=== PATIENT | male | born 1970 | race Two or more races ===

== ENCOUNTER 2025-04-01 08:00 | Day surgery (SDC) | payer MEDICAID, SELFPAY ==
[2025-03-31 10:11] VITALS: BMI 36.8
[2025-03-31 12:35] LABS: Basophils # (Auto) 0.1 Thou/mm3 (0.0-0.2); Basophils % (Auto) 1 % (0-2.5); Eosinophils # (Auto) 0.1 Thou/mm3 (0.0-0.5); Eosinophils % (Auto) 2 % (0-10); Hematocrit 53.8 % (41.0-53.0); Hemoglobin 18.4 g/dL (13.5-16.0); Immature Granulocytes Auto 0.05 Thou/mm3 (0.00-0.00); Lymphocytes # (Auto) 2.0 Thou/mm3 (1.0-4.8); Lymphocytes % (Auto) 24 % (10-50); Mean Corpuscular HGB Conc 34.2 g/dl (31.0-37.0); Mean Corpuscular Hemoglobin 29.3 pg (25.0-35.0); Mean Corpuscular Volume 86 fL (80-100); Monocytes # (Auto) 1.1 Thou/mm3 (0.0-0.8); Monocytes % (Auto) 14 % (0-12); Neutrophils # (Auto) 4.9 Thou/mm3 (1.8-7.7); Neutrophils % (Auto) 59 % (37-80); Nucleated Red Blood Cell # 0.00 Thou/mm3 (0.00-0.00); Nucleated Red Blood Cell % 0 /100 WBC (0); Platelet Count 331 Thou/mm3 (140-440); RDW Standard Deviation 39.8 fL (35.1-43.9); Red Blood Count 6.29 Miln/mm3 (4.50-5.90); White Blood Count 8.3 Thou/mm3 (3.8-10.6)
[2025-03-31 12:47] LABS: Alanine Aminotransferase 46 U/L (10-49); Albumin, Serum 4.9 gm/dL (3.5-5.0); Albumin/Globulin Ratio 1.5 (1.2-2.2); Alkaline Phosphatase 86 U/L (46-116); Anion Gap 12 (7-16); Aspartate Amino Transferase 38 U/L (0-34); BUN/Creatinine Ratio 12 Ratio (12-20); Bilirubin,Total 0.6 mg/dL (0.3-1.2); Blood Urea Nitrogen 13 mg/dL (9-23); Calcium 9.9 mg/dL (8.3-10.6); Calcium (Corrected) 9.9 mg/dL (8.5-10.1); Carbon Dioxide 28.2 mMol/L (20.0-31.0); Chloride 104 mMol/L (98-107); Creatinine (Component) 1.1 mg/dL (0.6-1.3); Estimated Creatinine Clearance 86.5 mL/min (>60); Globulin 3.2 gm/dL (2.3-3.5); Glucose 112 mg/dL (74-106); Osmolality,Calculated 287 (275-295); Potassium 3.7 mMol/L (3.4-5.1); Sodium 144 mMol/L (136-145); Total Protein 8.1 gm/dL (5.7-8.2); eGFR > 60 See Note
[2025-03-31 12:50] LABS: INR 1.0 (0.9-1.3); Partial Thromboplastin Time 29.9 Seconds (22.0-36.0); Prothrombin Time 10.7 Seconds (9.0-12.2)
--- NOTE | 2025-03-31 13:48 | SUR.PREOP ---
Pt notified to come in tomorrow at 0800 for surgery.
[2025-04-01] VITALS (9 sets, daily range): BP systolic 106–153; BP diastolic 74–96; PULSE 81–101; RESP 12–16; TEMP 36.6–36.8; O2SAT 95–98; BMI 36.1
--- NOTE | 2025-04-01 10:51 | PD.SUROPNT ---
Date of Procedure 04/01/25 Pre Op Diagnosis Torn medial meniscus left knee joint 2. Torn lateral meniscus 3. DJD 4. Synovitis with medial plica Post Op Diagnosis Same Procedure 1. Partial medial meniscectomy 2. Partial lateral meniscectomy 3. Chondroplasty 4. Partial synovectomy including excision plica Findings Refer dictation Procedure Description The patient was given general endotracheal anesthesia. Once satisfactory anesthesia was achieved, tourniquet was placed on left upper thigh. Following that the part was thoroughly prepped and draped. After using Esmarch the tourniquet pressure was raised to 350 mmHg. A skin incision was made proximal to lateral tibial plateau and arthroscope was introduced in the usual fashion. Another a skin incision was made in suprapatellar pouch area and outlet was established. The findings were noted as below. In suprapatellar pouch area significant synovial tissue inflammation was present. Medial plica was present as well. 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 The anterior femoral condyle showed grade 3 chondromalacia. Soft tissue impingement was present. The patellar tracking was checked and found to be good. The medial compartment showed grade 2 chondromalacia for medial tibial plateau and medial femoral condyle. The medial meniscus showed degeneration and tear of the anterior horn. Another skin incision was made proximal to medial tibial plateau and a probe was introduced and findings were confirmed. The anterior cruciate ligament was intact. The anterior drawer test was performed and found to be good. The lateral compartment showed grade II chondromalacia of grade III chondromalacia of lateral femoral condyle and anterior tibial plateau. Lateral meniscus showed degeneration of the body and anterior horn. A shaver was introduced and shaving of the anterior horn of medial meniscus was performed. Soft tissue impingement was shaved off. Chondroplasty of the lateral tibial plateau was performed. The shaving of the body and anterior horn of lateral meniscus was done. The chondroplasty of the patella and and anterior femoral condyle was performed. The soft tissue impingement was shaved off. A partial synovectomy including excision of plica was performed. Copious amount of irrigation was used to irrigate the knee joint. All the debris were removed. 3-0 Prolene was used to close the wound. About 20 mL of quarter percent Marcaine along with 10 mg of Duramorph was injected. Patient tolerated procedure well. Estimated blood loss was about 5 mL. Prognosis in this case is fair to good. Patient was taken to the recovery room in good condition. Anesthesia GETA and other Pathology / specimen None Estimated Blood Loss 1 Surgeon Luis Osorio MD Surgical Staff Operation Date: 04/01/25 10:15 Case Staff Anesthesiologist: Ramón Jones
--- NOTE | 2025-04-01 10:52 | SUR.PHASEI ---
1059 patient arrived to recovery resting comfortably in [facility], on oxygen 10L via oxy mask with an oral airway in place, breathing unlabored, vital signs stable, dressing intact to right knee; adaptic soaked in betadine, fluffs, abd, bias roll, silk tape, no bleeding noted, bilateral dorsalis pedis pulses present when palpated, patient has good circulation to left lower extremity; skin color to touch and normal skin color for patient, report received from Dr. Jones and Randy THOMAS
--- NOTE | 2025-04-01 12:04 | SUR.PHASEII ---
1204 Patient meets discharge criteria from recovery, awake and alert, breathing unlabored, vital signs stable, denies pain and nausea, dressing intact; no bleeding noted, ate a jello and drinking water; tolerating well, assisted with dressing into his clothing by his son, discharge instructions given to patient and patients son with the assistance of the hospital ivory carver Agustina, son signed discharge instructions. Patient given all his belongings prior to discharge, transported via wheelchair and left in a private vechile.
--- NOTE | 2025-04-01 15:38 | ESHP_ITS ---
RE: BLANCA MAGAÑA : 1970 DATE OF ADMISSION: 04/01/2025 The patient came to my office on 03/31/2025 for detailed preop history and physical examination. HISTORY OF PRESENTING COMPLAINT: As per history available, the patient presents to me with history of pain, swelling, clicking and locking of the left knee joint. Pain is quite bad. The patient graded intensity of pain to be 7-8 out of 10. Unable to sleep. Unable to walk more than 100 yards or so. Quality of life and activities of daily living is affected. PAST MEDICAL HISTORY: The patient has a history of diabetes mellitus and high blood pressure. No history of asthma, seizure, chest pain, myocardial infarction or bleeding disorder. PAST SURGICAL HISTORY: Nil known. DRUG HISTORY: The patient is on: 1. Hydrochlorothiazide. 2. Loratadine. 3. Metoprolol. 4. Metformin. 5. Steglatro. 6. Aspirin. The patient stopped aspirin about a week or 10 days back. ALLERGIES: NIL KNOWN. FAMILY HISTORY AND SOCIAL HISTORY: The patient denies smoking and drinking and not working. PHYSICAL EXAMINATION: GENERAL: Rather normal-built person. VITAL SIGNS: Pulse 78 per minute. Blood pressure 142/88. NECK: Soft, supple. No mass felt. Trachea is centrally placed. CARDIOVASCULAR SYSTEM: First and second heart sounds normal. No murmur heard. RESPIRATORY SYSTEM: Bilateral vesicular breath sounds, chest clear. ABDOMEN: Soft, no mass felt, bowel sounds present. EXTREMITIES: Left knee examination revealed mild swelling. There is 1+ tenderness. Active range of motion 0-110 degrees of flexion. Crepitus is present. Jose R's test is positive and drawer test is negative. Left knee examination revealed a mild swelling. There is 1+ tenderness along the joint line. Active range of motion 0-115 degrees of flexion. Jose R's test is positive. Drawer test and Rekha test negative. DIAGNOSTIC DATA: MRI scan confirmed a torn meniscus, DJD and synovitis with increased joint fluid. ASSESSMENT AND PLAN: Since the patient is symptomatic, therefore a left knee arthroscopy was discussed and advised. Risks with anesthesia was explained and that includes but not limited to reaction to anesthetic agents, cardiac arrest, rarely it might be fatal. Risks with the operation includes infection and if that happens, the patient may need further surgical procedure. Other risks include delayed healing, wound dehiscence, etc. No guarantee is given regarding outcome of the procedure and/or relief of symptoms. Accordingly surgery is booked for 04/01/2025. Appropriate lab work is done. DT: 10:58:08 TT: 11:07:00 Ref: [id number] - TID: [id number]
== END 2025-04-01 12:04 | disposition home or self-care (01) ==
PROVIDERS: Anesthesiology; PCP Physician Assistant; Referring Provider Orthopaedic Surgery; Visit Provider Orthopaedic Surgery
PROC: (CPT 29870; principal; 2025-04-01 10:15)
DX: S83.242A Other tear of medial meniscus, current injury, left knee, initial encounter (principal); M26.81 Anterior soft tissue impingement; M22.42 Chondromalacia patellae, left knee; M65.862 Other synovitis and tenosynovitis, left lower leg; M67.52 Plica syndrome, left knee; M17.12 Unilateral primary osteoarthritis, left knee; M23.342 Other meniscus derangements, anterior horn of lateral meniscus, left knee; M23.362 Other meniscus derangements, other lateral meniscus, left knee
CPT/HCPCS: 29880; 36415; 80053; 85025; 85610; 85730; A4217; A4649; J0131; J0690; J1100; J1885; J2250; J2405; J2704; J3010